=== PATIENT | male | born 1985 | race Two or more races ===

== ENCOUNTER → 2016-09-07 | Outpatient (CLI) | payer MEDICAID ==
[~2016-09-07] VITALS: Ht 172.7 cm; Wt 81.6 kg
== END | disposition home or self-care (01) ==
LOC: Rad HDHVI 13:47
PROVIDERS: ATTEND Internal Medicine Cardiovascular Disease
DX: R06.02 Shortness of breath (principal); R42 Dizziness and giddiness; R07.9 Chest pain, unspecified; Z82.49 Family history of ischemic heart disease and other diseases of the circulatory system
CPT/HCPCS: 93017

== ENCOUNTER → 2017-11-10 | Outpatient (CLI) | payer MEDICAID ==
[~2017-11-10] MED LIST: ALBUAER3 IN; ALPR2TAB2 PO; HYDR-531 PO
[2017-11-10 08:50] VITALS: BP 120/54
[2017-11-10 09:20] VITALS: BP 129/52
[2017-11-10 12:07] LABS: Basophils # (auto) 0 uL; Basophils % (auto) 0.7 % (0.0-2.0); Eosinophils # (auto) 0.3 uL; Eosinophils % (auto) 4.8 % (0.0-7.0); Hematocrit 44.9 % (41.0-53.0); Hemoglobin 15.3 g/dL (13.5-17.5); Lymphocytes # (auto) 1.3 uL; Lymphocytes % (auto) 20.8 % (10.0-50.0); Mean Corpuscular Hemoglobin 29.2 pg (28.0-32.0); Monocytes # (auto) 0.4 uL; Monocytes % (auto) 5.6 % (0.0-12.0); Neutrophils # (auto) 4.4 uL; Neutrophils % (auto) 68.1 % (37.0-80.0); Nucleated Red Blood Cells % 0.4 %; Platelet Count (auto) 297 10^3/uL (140-450); Red Blood Cells 5.22 10^6/uL (4.5-5.90); Red Cell Distribution Width 14.1 % (11.8-14.3); White Blood Cell 6.4 10^3/uL (4.4-10.8)
[2017-11-10 12:24] LABS: INR 0.98 (0.9-1.15); Prothrombin Time 10.7 sec (9.37-12.3)
[2017-11-10 12:30] LABS: BUN/Creatinine Ratio 10.4; Potassium 3.9 mmol/L (3.5-5.1)
== END | disposition home or self-care (01) ==
LOC: Rad HDHVI 08:31
PROVIDERS: ATTEND Internal Medicine Cardiovascular Disease
DX: Z01.818 Encounter for other preprocedural examination (principal); D64.9 Anemia, unspecified; R79.1 Abnormal coagulation profile; I10 Essential (primary) hypertension; R06.02 Shortness of breath; R07.89 Other chest pain
CPT/HCPCS: 36415; 71046; 80048; 85025; 85610; 85730; 93005; G0463

== ENCOUNTER 2017-11-16 12:01 | Day surgery (SDC) | payer MEDICAID ==
[~2017-11-16] VITALS: Ht 172.7 cm; Wt 77.0 kg
[2017-11-16] MEDS ORDERED: IOHEXOL 350 MG/ML 100ML IJ ONE (12:28)
[2017-11-16] MEDS ORDERED: LIDOCAINE HCL 2 %PF INJ 10ML AMP IJ ONE (12:29)
[2017-11-16] MEDS ORDERED: MIDAZOLAM HCL 1MG/1ML-2 ML VIAL ONE (13:11)
[2017-11-16] MEDS ORDERED: fentaNYL CITRATE 100 MCG/2 ML VL ONE (13:11)
[2017-11-16] MEDS ORDERED: SODIUM CHL 0.9% 0 ML ONE (13:24)
[2017-11-16] MEDS ORDERED: ANGIOMAX 250 MG VIAL IV ONE (13:26)
[2017-11-16] MEDS ORDERED: IODIXANOL 320MG/ML 100ML BTL IV ONE (13:41)
== END 2017-11-16 16:25 | disposition home or self-care (01) ==
LOC: CATH 12:01
PROVIDERS: ATTEND Internal Medicine Cardiovascular Disease
DX: I35.1 Nonrheumatic aortic (valve) insufficiency (principal); E66.9 Obesity, unspecified; I10 Essential (primary) hypertension; E78.5 Hyperlipidemia, unspecified; F17.210 Nicotine dependence, cigarettes, uncomplicated; J45.909 Unspecified asthma, uncomplicated; F41.9 Anxiety disorder, unspecified
CPT/HCPCS: 93460; C1760; C1769; C1894; J1644; J3010; J7030; Q9967; 99152; J2250